=== PATIENT | female | born 1970 | race Two or more races ===

== ENCOUNTER 2018-05-03 00:20 | Emergency (ER) | payer MEDICAID ==
[~2018-05-03] VITALS: Ht 165.1 cm; Wt 70.3 kg
[2018-05-03] MEDS ORDERED: AMOX500C2 (00:27)
[2018-05-03] MEDS ORDERED: PROCHLORPERAZINE EDISYLATE 10 MG/2 ML VIAL IV ONE (00:30)
--- NOTE | 2018-05-03 00:30 | NUR ---
Patient BIB [facility] from home c/o dizziness with nausea for several day but worse today
[2018-05-03] MEDS ORDERED: PROCHLORPERAZINE EDISYLATE 10 MG/2 ML VIAL ONE (00:41)
[2018-05-03 00:47] LABS: BASOPHILS # (AUTO) 0.1 K/uL (0.0-8.0); BASOPHILS % (AUTO) 0.9 % (0.0-2.0); EOSINOPHILS # (AUTO) 0.1 K/uL (0.0-0.7); EOSINOPHILS % (AUTO) 0.7 % (0.0-7.0); HEMATOCRIT 40.4 % (31.2-41.9); HEMOGLOBIN 13.8 g/dL (10.9-14.3); LYMPHOCYTES % (AUTO) 30.5 % (20.5-51.5); MEAN CORPUSCULAR HEMOGLOBIN 28.1 uug (24.7-32.8); MEAN CORPUSCULAR HGB CONC 34 g/dL (32.3-35.6); MEAN CORPUSCULAR VOLUME 82.5 fL (75.5-95.3); MONOCYTES # (AUTO) 0.7 K/uL (2.0-10.0); NEUTROPHILS # (AUTO) 6.1 K/uL (1.8-8.9); NEUTROPHILS % (AUTO) 60.9 % (38.5-71.5); PLATELET COUNT (AUTO) 201 K/uL (179-408)
[2018-05-03 00:52] LABS: CREATININE 0.9 mg/dL (0.6-1.3); POTASSIUM 3.3 mmol/L (3.5-5.1)
[2018-05-03] MEDS ORDERED: MECLIZINE HCL 25 MG TABLET PO ONE (01:00)
[2018-05-03] MEDS ORDERED: MECLIZINE HCL 25 MG TABLET ONE (01:04)
[2018-05-03] MEDS ORDERED: ONDANSETRON 4 MG/2 ML VIAL ONE (01:23)
[2018-05-03] MEDS ORDERED: POTASSIUM CHLORIDE 20 MEQ TAB.PRT.SR ONE (01:23)
[2018-05-03] MEDS ORDERED: LORAZEPAM 2 MG/1 ML VIAL ONE (01:23)
[2018-05-03] MEDS ORDERED: LORAZEPAM 2 MG/1 ML VIAL IV ONE (01:30)
[2018-05-03] MEDS ORDERED: ONDANSETRON 4 MG/2 ML VIAL IV ONE (01:30)
[2018-05-03] MEDS ORDERED: POTASSIUM CHLORIDE 20 MEQ TAB.PRT.SR PO ONE (01:30)
--- NOTE | 2018-05-03 02:10 | NUR ---
Patient states nausea has improved
[2018-05-03] MEDS ORDERED: SWABABLE VALVE TRANSFER SET EA MC ONE (02:22)
[2018-05-03] MEDS ORDERED: IOHEXOL 300MG/ML 100 ML INFUS..BTL ONE (02:22)
[2018-05-03] MEDS ORDERED: IV NORMAL SALINE 250 ML IV ONE (02:22)
--- NOTE | 2018-05-03 02:50 | NUR ---
Pateitn sleeping with no distress noted
--- NOTE | 2018-05-03 03:55 | NUR ---
Patient discharged to home in stable conditon with daUGHTER TAKING PATIENT HOME. Written and verbal after care instructions given. Patient verbalizes understanding of instructions.
[2018-05-03 03:56] VITALS: BP 128/75
== END 2018-05-03 03:57 | disposition home or self-care (01) ==
LOC: ER 00:23
DX: R42 Dizziness and giddiness (principal); R51 Headache; Z79.2 Long term (current) use of antibiotics
CPT/HCPCS: 36415; 70450; 70460; 80048; 84702; 85025; 93005; 96374; 96375; 99284; J0780; J2060; J2405; Q9967; 70470; A4663; J7050; J8597

== ENCOUNTER 2020-09-24 14:42 | Emergency (ER) | payer MEDICAID ==
[~2020-09-24] VITALS: Ht 157.5 cm; Wt 76.2 kg
[~2020-09-24 14:42] MED LIST: AMOX500C2
--- NOTE | 2020-09-24 14:57 | NUR ---
Dr Mosqueda at the bedside for MSE.
[2020-09-24] MEDS ORDERED: ALLO100T PO (15:05)
[2020-09-24 16:21] VITALS: BP 128/70
--- NOTE | 2020-09-24 16:22 | NUR ---
Patient discharged to home in stable condition. Written and verbal after care instructions given. Patient verbalizes understanding of instructions. Stressed follow up or return to ER for worsening s/s.
== END 2020-09-24 16:23 | disposition home or self-care (01) ==
LOC: ER 14:42
DX: M25.572 Pain in left ankle and joints of left foot (principal)
CPT/HCPCS: 73610; A4663

== ENCOUNTER 2022-12-31 14:16 | Emergency (ER) | payer MEDICAID ==
[~2022-12-31] VITALS: Ht 154.9 cm; Wt 81.6 kg
[~2022-12-31 14:16] MED LIST changes: +ALLO100T PO; -AMOX500C2
[2022-12-31 14:42] VITALS: O2SAT 97
[2022-12-31] MEDS ORDERED: NAPROXEN 500 MG TABLET PO ONE (15:45)
[2022-12-31] MEDS ORDERED: NAPROXEN 500 MG TABLET ONE (15:57)
[2022-12-31] MEDS ORDERED: NAPR-1164 PO (17:12)
== END 2022-12-31 18:00 | disposition home or self-care (01) ==
LOC: ER 14:16
DX: S69.92XA Unspecified injury of left wrist, hand and finger(s), initial encounter (principal); Z88.8 Allergy status to other drugs, medicaments and biological substances; Z79.899 Other long term (current) drug therapy; W01.0XXA Fall on same level from slipping, tripping and stumbling without subsequent striking against object, initial encounter; Y93.89 Activity, other specified; Y92.89 Other specified places as the place of occurrence of the external cause; Y99.8 Other external cause status
CPT/HCPCS: 73110; A4663